=== PATIENT | female | born 1980 | race Two or more races ===

== ENCOUNTER 2023-06-30 11:30 | Emergency (ER) | payer MEDICAID, OTHER ==
[~2023-06-30] VITALS: Ht 157.5 cm; Wt 75.6 kg
[2023-06-30 11:34] VITALS: BP 131/86; PULSE 84; RESP 18; O2SAT 100
== END 2023-06-30 18:36 | disposition left against medical advice (07) ==
LOC: ER 11:30
DX: M54.50 Low back pain, unspecified (principal); R10.2 Pelvic and perineal pain; Z53.21 Procedure and treatment not carried out due to patient leaving prior to being seen by health care provider

== ENCOUNTER 2023-08-16 17:07 | Emergency (ER) | payer MEDICAID, OTHER ==
[~2023-08-16] VITALS: Ht 157.5 cm; Wt 76.8 kg
[2023-08-16 19:09] VITALS: BP 143/85; PULSE 105; RESP 16; TEMP 98.2; O2SAT 99
[2023-08-16] MEDS ORDERED: KETOROLAC TROMETH 60MG/2ML VIAL IM ONE (20:00)
[2023-08-16] MEDS ORDERED: HYDROcodone-ACET 5/325MG TAB PO ONE (20:15)
[2023-08-16] MEDS ORDERED: ONDANSETRON ODT 4 MG TAB PO ONE (20:15)
[2023-08-16] MEDS ORDERED: IBUP1TAB5 PO (21:47)
[2023-08-16] MEDS ORDERED: CYCL-839 PO (21:47)
[2023-08-16] MEDS ORDERED: LIDO5PAD8 EX (21:47)
== END 2023-08-16 22:07 | disposition home or self-care (01) ==
LOC: ER 17:07
DX: S39.012A Strain of muscle, fascia and tendon of lower back, initial encounter (principal); S30.0XXA Contusion of lower back and pelvis, initial encounter; W18.39XA Other fall on same level, initial encounter; Y93.89 Activity, other specified; Y92.89 Other specified places as the place of occurrence of the external cause; Y99.8 Other external cause status
CPT/HCPCS: 71101; 72070; 72100; 73502; 81025; 96372; 99284; J1885; Q0162

== ENCOUNTER 2023-09-23 12:30 | Emergency (ER) | payer OTHER ==
[~2023-09-23] VITALS: Ht 154.9 cm; Wt 70.5 kg
[~2023-09-23 12:30] MED LIST: CYCL-839 PO; IBUP1TAB5 PO; LIDO5PAD8 EX
[2023-09-23 13:33] LABS: INR 0.98 (0.9-1.15); Partial Thromboplastin Time 28.8 SEC (24.5-34.5); Prothrombin Time 10.3 sec (9.3-11.8)
[2023-09-23 13:45] LABS: Alanine Aminotransferase 50 U/L (7-40); Albumin 5.1 g/dL (3.2-4.8); Alkaline Phosphatase 161 U/L (46-116); Anion Gap 9 (5-15); Aspartate Aminotransferase 29 U/L (13-40); BUN/Creatinine Ratio 16.4 (10.0-20.0); Bilirubin, Total 0.5 mg/dL (0.2-1.0); Blood Urea Nitrogen 12 mg/dL (9-23); Calcium 9.8 mg/dL (8.5-10.1); Carbon Dioxide 24 mmol/L (20-30); Chloride 103 mmol/L (98-107); Glucose 104 mg/dL (74-106); Potassium 4.4 mmol/L (3.5-5.1); Sodium 136 mmol/L (136-145); Total Protein 8.5 g/dL (5.7-8.2)
[2023-09-23 13:53] LABS: Basophils # (auto) 0.1 10 ^3/uL (0-0.2); Basophils % (auto) 0.6 % (0.0-2.0); Eosinophils # (auto) 0.2 10 ^3/uL (0-0.8); Eosinophils % (auto) 1.4 % (0.0-7.0); Hemoglobin 13.6 g/dL (12.2-16.2); Lymphocytes # (auto) 2.2 10 ^3/uL (0.4-5.4); Lymphocytes % (auto) 13.6 % (10.0-50.0); Mean Corpuscular Hemoglobin 28.6 pg (28.0-32.0); Mean Corpuscular Hgb Conc. 32.5 g/dL (32.0-36.0); Monocytes # (auto) 0.8 10 ^3/uL (0-1.3); Monocytes % (auto) 5.2 % (0.0-12.0); Neutrophils # (auto) 12.5 10 ^3/uL (1.6-8.6); Neutrophils % (auto) 79.2 % (37.0-80.0); Red Blood Cells 4.77 10^6/uL (4.0-5.20); Red Cell Distribution Width 15.4 % (11.8-14.3); White Blood Cell 15.8 10^3/uL (4.4-10.8)
[2023-09-23] MEDS ORDERED: BACDST PO (14:27)
[2023-09-23] MEDS: cefTRIAXone SOD 1,000 MG VL IM ONE (14:47)
[2023-09-23 15:14] VITALS: BP 129/87; PULSE 97; RESP 16; TEMP 98.7; O2SAT 100
== END 2023-09-23 15:15 | disposition home or self-care (01) ==
LOC: EDBD 12:30 → ER 12:30
DX: N39.0 Urinary tract infection, site not specified (principal); R07.89 Other chest pain
CPT/HCPCS: 36415; 71045; 80053; 84484; 85610; 85730; 96372; 99284; J0696

== ENCOUNTER 2023-12-15 02:43 | Emergency (ER) | payer OTHER ==
[~2023-12-15] VITALS: Ht 154.9 cm; Wt 72.9 kg
[~2023-12-15 02:43] MED LIST changes: +BACDST PO; +LIDO5PAD12 EX; -LIDO5PAD8 EX
[2023-12-15 04:24] LABS: Basophils # (auto) 0.1 10 ^3/uL (0-0.2); Basophils % (auto) 0.7 % (0.0-2.0); Eosinophils # (auto) 0.2 10 ^3/uL (0-0.8); Hematocrit 40.5 % (36.0-46.0); Lymphocytes # (auto) 1.6 10 ^3/uL (0.4-5.4); Lymphocytes % (auto) 19.2 % (10.0-50.0); Mean Corpuscular Hemoglobin 28.7 pg (28.0-32.0); Mean Corpuscular Hgb Conc. 32.1 g/dL (32.0-36.0); Mean Corpuscular Volume 89.6 fL (80.0-100.0); Monocytes # (auto) 0.7 10 ^3/uL (0-1.3); Monocytes % (auto) 8.6 % (0.0-12.0); Neutrophils # (auto) 5.7 10 ^3/uL (1.6-8.6); Neutrophils % (auto) 68.5 % (37.0-80.0); Red Blood Cells 4.52 10^6/uL (4.0-5.20); Red Cell Distribution Width 15.6 % (11.8-14.3); White Blood Cell 8.3 10^3/uL (4.4-10.8)
[2023-12-15 04:29] LABS: Alanine Aminotransferase 66 U/L (7-40); Albumin 4.5 g/dL (3.2-4.8); Alkaline Phosphatase 146 U/L (46-116); Anion Gap 6 (5-15); Aspartate Aminotransferase 25 U/L (13-40); BUN/Creatinine Ratio 17.4 (10.0-20.0); Bilirubin, Total 0.5 mg/dL (0.2-1.0); Blood Urea Nitrogen 12 mg/dL (9-23); Calcium 9.8 mg/dL (8.7-10.4); Carbon Dioxide 27 mmol/L (20-30); Chloride 106 mmol/L (98-107); Glucose 93 mg/dL (74-106); Sodium 139 mmol/L (136-145); Total Protein 7.6 g/dL (5.7-8.2)
[2023-12-15] MEDS ORDERED: LISI-275 PO (07:17)
[2023-12-15] MEDS: ASPirin 325 MG TAB PO ONE (07:36)
[2023-12-15] MEDS: LORazepam 0.5 MG TAB PO ONE (07:36)
[2023-12-15 07:38] VITALS: BP 123/51; PULSE 71; RESP 18; TEMP 97.9; O2SAT 96
== END 2023-12-15 07:40 | disposition home or self-care (01) ==
LOC: ER 02:43
DX: I10 Essential (primary) hypertension (principal); Z91.040 Latex allergy status
CPT/HCPCS: 36415; 71045; 80053; 84484; 85025; 93005